=== PATIENT | female | born 1945 | race Caucasian/White ===

== ENCOUNTER 2016-06-17 10:07 | Outpatient (CLI) | payer MEDICARE, OTHER ==
[~2016-06-17] VITALS: Ht 151.1 cm; Wt 53.5 kg
[2016-06-17] MEDS ORDERED: FOLI1TAB24 PO (13:10)
[2016-06-17] MEDS ORDERED: LISI-552 PO (13:10)
[2016-06-17] MEDS ORDERED: OMEP20CA12 PO (13:10)
[2016-06-17] MEDS ORDERED: INFL100V IV (13:10)
[2016-06-17] MEDS ORDERED: FERR325T5 PO (13:10)
[2016-06-17] MEDS ORDERED: OMG1KC PO (13:10)
[2016-06-17] MEDS ORDERED: VITA150T PO (13:10)
[2016-06-17] MEDS ORDERED: METH25VI57 IJ (13:10)
[2016-06-17] MEDS ORDERED: RANI150T90 PO (13:10)
[2016-06-17] MEDS ORDERED: SUMA25TA3 PO (13:10)
[2016-06-17] MEDS ORDERED: CRAN500T2 PO (13:10)
[2016-06-17] MEDS ORDERED: LEUC5TAB PO (13:10)
[2016-06-17] MEDS ORDERED: PRED2.5T PO (13:10)
[2016-06-17] MEDS ORDERED: CALC-6 PO (13:10)
[2016-06-17] MEDS ORDERED: CETI10TA17 PO (13:10)
[2016-06-17] MEDS ORDERED: METF500T4 PO (13:10)
[2016-06-17] MEDS ORDERED: EST5V5 IM (13:10)
[2016-06-17] MEDS ORDERED: PROP40TA5 PO (13:10)
[2016-06-17] MEDS ORDERED: AMLO5TAB2 PO (13:10)
[2016-06-17] MEDS ORDERED: MAGN250T35 PO (13:10)
[2016-06-17] MEDS ORDERED: VITA400T9 PO (13:10)
[2016-06-17] MEDS ORDERED: TIMO5DRO5 OU (13:10)
== END 2016-06-17 13:14 ==
LOC: PREOP 10:07
PROVIDERS: ATTEND Pain Medicine Pain Medicine
DX: Z01.818 Encounter for other preprocedural examination (principal); G89.29 Other chronic pain; M51.36 Other intervertebral disc degeneration, lumbar region

== ENCOUNTER 2016-06-24 05:53 | Day surgery (SDC) | payer MEDICARE, OTHER ==
[~2016-06-24] VITALS: Ht 151.1 cm; Wt 53.5 kg
[~2016-06-24 05:53] MED LIST: AMLO5TAB2 PO; CALC-6 PO; CETI10TA17 PO; CRAN500T2 PO; EST5V5 IM; FERR325T5 PO; FOLI1TAB24 PO; INFL100V IV; LEUC5TAB PO; LISI-552 PO; MAGN250T35 PO; METF500T4 PO; METH25VI57 IJ; OMEP20CA12 PO; OMG1KC PO; PRED2.5T PO; PROP40TA5 PO; RANI150T90 PO; SUMA25TA3 PO; TIMO5DRO5 OU; VITA150T PO; VITA400T9 PO
--- OUTSIDE RECORDS SUMMARY | 2016-06-24 05:57 | XMS REPORT | Continuity of Care Document ---
Author Author [facility] Organization [facility] Address Unknown Phone Unavailable Support Name Relationship Address Phone CANDELARIO JAMESON MD Caregiver [address] [facility] [place] [address] [phone] Insurance Providers Payer Name Policy Number Subscriber Name Relationship [employer] [id number] Nabil Fregoso 17 Self / Same As Patient Advance Directives Directive Response Recorded Date/Time Advance Directives No 06/17/16 12:50pm Health Care Power of Investigation Lieutenant No 06/17/16 12:50pm Resuscitation Status Full Code 06/17/16 12:50pm Problems No problem information available. Medications Current Home Medications Medication Dose Units Route Directions Days/Qty Instructions Start Date Amlodipine Besylate 5 Mg 5 Mg Oral Daily 06/17/16 Cetirizine Hcl 10 Mg 10 Mg Oral Daily 2 Days Prior take daily for 2 days prior to Remicade infusion 06/17/16 Ranitidine Hcl (Ranitidine) 150 Mg 150 Mg Oral Daily 2 Days Prior take daily for 2 days prior to Remicade infusion 06/17/16 Infliximab 100 Mg 100 Mg Intraven Every 5 Weeks 06/17/16 Folic Acid 1 Mg 1 Mg Oral Daily 06/17/16 Leucovorin Calcium 5 Mg 5 Mg Oral Weekly take 1 dose 8 hours after weekly Methotrexate inj on monday06/17/16 Methotrexate Sodium 25 Mg/1 Ml 0.7 Ml Injection Weekly 06/17/16 Omeprazole 20 Mg 20 Mg Oral Daily 06/17/16 Cranberry Extract 500 Mg 500 Mg Oral Twice A Day 06/17/16 Vitamin E Mixed 400 Unit 400 Unit Oral Twice A Day 06/17/16 Vitamin B Complex & Vit C No.4 150 Mg 150 Mg Oral Daily 06/17/16 [place] 3 Polyunsat Fatty Acids 1,000 Mg 2,000 Mg Oral Twice A Day take 2 (1,000mg) tabs 06/17/16 Timolol Maleate 5 Ml 1 Drop Each Eye Bedtime 06/17/16 Lisinopril 20 Mg 20 Mg Oral Daily 06/17/16 Prednisone 2.5 Mg 2.5 Mg Oral Daily 06/17/16 Metformin Hcl 500 Mg 500 Mg Oral Twice A Day 06/17/16 Ferrous Sulfate 325 Mg 325 Mg Oral Daily 06/17/16 Sumatriptan Succinate 25 Mg 25 Mg Oral As Directed as needed for Migraine 06/17/16 Propranolol Hcl 40 Mg 20 Mg Oral Twice A Day take 1/2 of 40mg tab 07/01 Estradiol Cypionate 25 Mg/5 Ml 5 Mg Intramusc Monthly 06/17/16 Magnesium Oxide 250 Mg 500 Mg Oral Daily take 2 (250mg) tabs 06/17/16 Calcium Carbonate/Vitamin D3 1 Each 1 Each Oral Twice A Day 06/17/16 Social History Social History Problem Response Recorded Date/Time Alcohol Use Denies Use 06/17/2016 12:50pm Recreational Drug Use No 06/17/2016 12:50pm Recent Foreign Travel No 06/17/2016 12:50pm Recent Infectious Disease Exposure No 06/17/2016 12:50pm Smoking Status Never a Smoker 06/17/2016 12:50pm Recent Hopitalizations No 06/17/2016 12:50pm Query Response Start Date Stop Date Smoking Status Never a Smoker Hospital Discharge Instructions No hospital discharge instructions. Plan of Care Discharge Date 06/17/16 1:14pm Prescriptions See Medication Section Functional Status No functional status results. Allergies, Adverse Reactions, Alerts Allergen Type Severity Reaction Status Last Updated Morphine Allergy Unknown NAUSEA Active 06/17/16 Codeine Allergy Unknown NAUSEA Active 06/17/16 Immunizations No immunization records. Vital Signs Acute Vital Signs Vital Response Date/Time Height (Feet) 4 feet 06/17/2016 12:49pm Height (Inches) 11.50 inches 06/17/2016 12:49pm Height (Calculated Centimeters) 151.605499 cm 06/17/2016 12:49pm Weight (Pounds) 118 pounds 06/17/2016 12:49pm Weight (Ounces) 0.0 oz 06/17/2016 12:49pm Weight (Calculated Grams) 77209.90 gm 06/17/2016 12:49pm Weight (Calculated Kilograms) 53.403828 kilograms 06/17/2016 12:49pm Calculated BMI 23.4 06/17/2016 12:49pm Results No known relevant diagnostic tests, laboratory data and/or discharge summary. Procedures No known history of procedures. Encounters Encounter Location Arrival/Admit Date Discharge/Depart Date Attending Provider Departed Clinic [facility] 06/17/16 10:07am 06/17/16 1: 14pm CANDELARIO JAMESON MD
--- OUTSIDE RECORDS SUMMARY | 2016-06-24 05:57 | XMS REPORT | Continuity of Care Document ---
Author Author [facility] Organization [facility] Address Unknown Phone Unavailable Support Name Relationship Address Phone CANDELARIO JAMESON MD Caregiver [address] [place] [address] [phone] Insurance Providers Payer Name Policy Number Subscriber Name Relationship [employer] [id number] Nabil Fregoso 17 Self / Same As Patient Advance Directives Directive Response Recorded Date/Time Advance Directives No 06/17/16 12:50pm Health Care Power of Manager Sterile Processing No 06/17/16 12:50pm Resuscitation Status Full Code [...] 150 Mg 150 Mg Oral Daily 06/17/16 [place] 3 Polyunsat Fatty Acids 1,000 Mg 2,000 [...] 11.50 inches 06/17/2016 12:49pm Height (Calculated Centimeters) 151.936275 cm 06/17/2016 12:49pm Weight (Pounds) 118 pounds 06/17/2016 12:49pm Weight (Ounces) 0.0 oz 06/17/2016 12:49pm Weight (Calculated Grams) 86170.90 gm 06/17/2016 12:49pm Weight (Calculated Kilograms) 53.059816 kilograms 06/17/2016 12:49pm Calculated BMI 23.4 06/17/2016 12:49pm Results No known relevant diagnostic tests, laboratory data and/or discharge summary. Procedures No known history of procedures. Encounters Encounter Location Arrival/Admit Date Discharge/Depart Date Attending Provider Departed Clinic [facility] 06/17/16 10:07am 06/17/16 1: 14pm CANDELARIO JAMESON MD
[2016-06-24 06:20] VITALS: BP 181/87
[2016-06-24] MEDS ORDERED: NS (IVPB) 50 ML ONE (06:40)
[2016-06-24] MEDS ORDERED: ceFAZolin 1,000 MG (ANCEF) VIAL ONE (06:40)
[2016-06-24] MEDS ORDERED: ceFAZolin 1 GM/NS 50 ML IVPB IV ONE ×2 (07:00)
[2016-06-24] MEDS ORDERED: LIDOCAINE 1% INJ 20 ML (XYLOCAINE) VIAL ONE (07:10)
[2016-06-24] MEDS ORDERED: LACTATED RINGERS 1,000 ML IV PRN (07:17)
[2016-06-24] MEDS ORDERED: MIDAZOLAM 2 MG/2 ML (VERSED) VIAL ONE (07:20)
[2016-06-24] MEDS ORDERED: proPOfol 200 MG/20 ML (DIPRIVAN) VIAL IV ONE (07:20)
[2016-06-24] MEDS ORDERED: FAMOTIDINE 20MG/2ML IV (PEPCID) ONE (07:20)
--- NOTE | 2016-06-24 07:28 | Progress Note-Pre Operative ---
Pre-Operative Progress Note H&P Reviewed The H&P was reviewed, patient examined and no changes noted. Date H&P Reviewed: Jun 24, 2016 Time H&P Reviewed: 07:27 Pre-Operative Diagnosis: chronic pain syndrome, lumbago, degenerative disc disease lumbar CANDELARIO JAMESON MD Jun 24, 2016 7:28 am
[2016-06-24] MEDS ORDERED: FAMOTIDINE 20MG/2ML IV (PEPCID) IV ONE (07:30)
--- NOTE | 2016-06-24 08:33 | Discharge Inst-Simple/Standard ---
Discharge Inst-Standard Patient Instructions/Follow Up Plan of Care/Instructions/FU: Call clinic for any fevers, chills or bleeding/drainage from surgical site. Do not remove the dressings. No showers or bathing for 7 days. Turn off the spinal cord stimulator when driving. Follow up in clinic on 06/28/16 at 11:30 Call the spinal cord stimulator customer retention representative or pain clinic for any questions or concerns. Activity as Tolerated: Yes Discharge Diet: No Restrictions CANDELARIO JAMESON MD Jun 24, 2016 08:33
[2016-06-24] MEDS: HYDROmorphone (DILAUDID) 2 MG/ML VIAL IVP PRN ×2 (08:34→08:40)
--- NOTE | 2016-06-24 08:36 | Operative Report ---
Operative Report Date of Procedure/Surgery Jun 24, 2016 Post-Operative Diagnosis chronic pain syndrome, lumbago, degenerative disc disease lumbar Procedure Performed Name of Procedure: AP Film of Thoracolumbar Spine w/ fluoroscopy guidance and interpretation Placement of specialized epidural needle to the L2-3 inter space bilaterally Placement of linear lead with dual 8 electrodes to the T7-T8 area Intra-operative complex programming of lead taking 30 minutes. Anchoring the spinal cord stimulator lead to the skin Complex programming in recovery taking 30 minutes. Description of Procedure Anesthesia Type: MAC Estimated blood loss (mL): <5 ml Specimen(s) collected none Packing: none Indications The patient is an established patient with the above known diagnosis. The patient understands the reason for the procedure along with the risks, benefits and alternatives available. The patient has had the opportunity to ask questions prior to the procedure, and the patient has given written, informed, consent to proceed with the procedure. Medical Necessity: This patient has chronic pain that has failed to respond to conservative measures as outlined in the original history and physical exam. Patient's symptoms include pain in the low back, hips and legs bilaterally. The goals of treatment are to 1) achieve optimal pain control, recognizing that a pain-free state may not be achievable; 2) minimize adverse outcomes; 3) enhance functional abilities, and physical and psychological well-being; and 4) enhance the quality of life for patients with chronic pain. Procedure After obtaining written informed consent patient. Patient was taken to the operating room. Pre-procedure blood pressure and pulse were stable and recorded in patients clinic chart. A formal time out was performed. Ancef 1 gm IV was given. The patient was placed in the prone position on operating room table. The patient was attached to a vital sign monitor, continuously monitoring saturation through pulse oximeter, pulse rate, and routine checks on the blood pressure as recorded in the anesthesia record. Moderate level sedation was then achieved by anesthesia as detailed in anesthesia record. A large portion of the dorsal cavity was scrubbed with a micro-antibacterial surgical solution. The patient was draped in typical sterile fashion. After confirmation of vertebral count through thorocolumbar films, the C-arm was used to help define the angle and access point for the epidural needle. Prior to needle placement, and after location of the access point, lidocaine 1% was infiltrated into the skin and deeper tissue area for localization prior to specialized epidural needle placement. After the lidocaine had taken effect, a Touhy needle size 14- guage was introduced and advanced at the level of L2-L3 on the right and left side. Once the loss of resistance was positive using a glass syringe, an 8 electrode linear lead was channeled through the epidural needle and guided carefully to the T7-T8 disc inter space. The same steps were followed to place an 8 electrode lead midline to the left of the first lead. This placement gave appropriate stimulation. Various program settings were worked through within the operating room, to ensure appropriate coverage with the stimulation. Minor adjustments were made as needed to develop excellent coverage. There was no evidence of paresthesia, heme or CSF. Once the coverage was optimal, the guide needle was removed from the insertion site. The leads then were anchored using the tapered anchor 2-0 silk. Sterile dressing applied using tegaderm, bacitracin ointment and gauze. The patient was then taken from the operating room via stretcher and placed in a recovery room. Once in the recovery room, the fine tune adjustments were made to the stimulation pattern. This additional programming was needed to give the patient optimal coverage during the trial. Post operatively the patient was monitored until stable. Following the procedure the patient's vital signs were stable. fluoro time are recorded in the patient chart. Allergies and Home Medications Allergies Coded Allergies: codeine (Verified Allergy, Unknown, NAUSEA, 06/17/16) morphine (Verified Allergy, Unknown, NAUSEA, 06/17/16) Home Medications Amlodipine Besylate 5 Mg Tablet 5 MG PO DAILY (Reported) Calcium Carbonate/Vitamin D3 1 Each Tablet 1 EACH PO BID (Reported) Cetirizine HCl 10 Mg Tablet 10 MG PO daily 2 days prior (Reported) take daily for 2 days prior to Remicade infusion Cranberry Extract 500 Mg Tablet 500 MG PO BID (Reported) Estradiol Cypionate 25 Mg/5 Ml Inj 5 MG IM monthly (Reported) Ferrous Sulfate 325 Mg Tablet.dr 325 MG PO DAILY (Reported) Folic Acid 1 Mg Tablet 1 MG PO DAILY (Reported) Infliximab 100 Mg Soln 100 MG IV every 5 weeks (Reported) Leucovorin Calcium 5 Mg Tablet 5 MG PO WEEK (Reported) take 1 dose 8 hours after weekly Methotrexate inj on monday Lisinopril 20 Mg Tablet 20 MG PO DAILY (Reported) Magnesium Oxide 250 Mg Tablet 500 MG PO DAILY (Reported) take 2 (250mg) tabs Metformin HCl 500 Mg Tablet 500 MG PO BID (Reported) Methotrexate Sodium 25 Mg/1 Ml Vial 0.7 ML IJ WEEK (Reported) [place] 3 Polyunsat Fatty Acids 1,000 Mg Cap 2,000 MG PO BID (Reported) take 2 (1,000mg) tabs Omeprazole 20 Mg Capsule.dr 20 MG PO DAILY (Reported) Prednisone 2.5 Mg Tablet 2.5 MG PO DAILY (Reported) Propranolol HCl 40 Mg Tablet 20 MG PO BID (Reported) take 1/2 of 40mg tab Ranitidine HCl 150 Mg Tablet 150 MG PO daily 2 days prior (Reported) take daily for 2 days prior to Remicade infusion Sumatriptan Succinate 25 Mg Tablet 25 MG PO UD PRN PRN MIGRAINE (Reported) Timolol Maleate 5 Ml Drops 1 DROP OU HS (Reported) Vitamin B Complex & Vit C No.4 150 Mg Tablet 150 MG PO DAILY (Reported) Vitamin E Mixed 400 Unit Tablet 400 UNIT PO BID (Reported) CANDELARIO JAMESON MD Jun 24, 2016 08:35
[2016-06-24] MEDS ORDERED: ONDANSETRON 4 MG/2 ML (SDV) Z0FRAN IVP PRN (08:45)
[2016-06-24] MEDS ORDERED: MEPERIDINE (DEMEROL) INJ 50 MG/ML IVP PRN (08:45)
[2016-06-24] MEDS ORDERED: LACTATED RINGERS 1,000 ML IV ONE (08:50)
[2016-06-24 08:55] VITALS: BP 129/86
[2016-06-24 09:25] VITALS: BP 146/78
--- NOTE | 2016-06-24 18:27 | Diagnostic Imaging Report ---
INDICATION: Nerve stimulator insertion. EXAMINATION: Fluoroscopy. FINDINGS: Fluoroscopic assistance was provided for Dr. Les Sykes during his trial nurse stimulator insertion procedure. 1 minute and 42 seconds of fluoroscopy time was utilized. A single spot film of the thoracic lumbar spine was obtained. There is a dorsal stimulator device in place with the tip of the leads overlying the inferior half of T7. IMPRESSION: Fluoroscopic assistance was provided for Dr. Sheridan during his trial nerve stimulator insertion procedure. Dictated by: Dictated on workstation # [id number]
== END 2016-06-24 09:45 | disposition home or self-care (01) ==
LOC: SDC 05:53
PROVIDERS: ATTEND Pain Medicine Pain Medicine
DX: G89.29 Other chronic pain (principal); M51.36 Other intervertebral disc degeneration, lumbar region; M54.5 Low back pain; E11.9 Type 2 diabetes mellitus without complications; Z79.84 Long term (current) use of oral hypoglycemic drugs
CPT/HCPCS: 82962; 87081